=== PATIENT | male | born 1980 | race Caucasian/White ===

== ENCOUNTER 2020-12-01 21:41 | Inpatient (IN) | payer MEDICAID, SELFPAY ==
[~2020-12-01] VITALS: Ht 162.6 cm; Wt 71.9 kg
[~2020-12-01 21:41] MED LIST: AMOX500T3 PO; CLAR500T99 PO; OMEP20TC10 PO
[2020-12-01 21:45] VITALS: BP 89/52
--- NOTE | 2020-12-01 21:45 | NUR ---
TO BED 5 FROM TRIAGE VIA W/C WITH C/O HEMATEMESIS. IS PALE WITH RESPIRATIONS REGULAR AND UNLABORED. APPEARS TIRED. PMH : YAJAIRA NKDA
--- NOTE | 2020-12-01 21:45 | NUR ---
TO BED VIA WHEELCHAIR
[2020-12-01] MEDS ORDERED: PANTOPRAZOLE 40 MG INJ VIAL IVP ONE (22:30)
[2020-12-01] MEDS ORDERED: MORPHINE SULFATE 4 MG/ML SYR IVP ONE (22:30)
[2020-12-01] MEDS ORDERED: ONDANSETRON 4 MG/2 ML VIAL IVP ONE (22:30)
--- NOTE | 2020-12-01 22:33 | NUR ---
LAB AT BEDSIDE.
[2020-12-01 22:56] LABS: BASOPHILS # (AUTO) 0.1 K/uL (0.00-0.22); BASOPHILS % (AUTO) 1.2 % (0.0-2.0); EOSINOPHILS % (AUTO) 0.3 % (0.0-4.0); LYMPHOCYTES # (AUTO) 1.3 K/uL (2.0-11.5); LYMPHOCYTES % (AUTO) 15.8 % (20.5-51.1); MEAN CORPUSCULAR HEMOGLOBIN 24 pg (27-31); MEAN CORPUSCULAR HGB CONC 32 g/dL (33-37); MEAN CORPUSCULAR VOLUME 76.7 fL (80-94); MONOCYTES # (AUTO) 0.5 K/uL (0.8-1.0); MONOCYTES % (AUTO) 5.5 % (1.7-9.3); NEUTROPHILS # (AUTO) 6.4 K/uL (1.8-7.7); NEUTROPHILS % (AUTO) 77.2 % (42.2-75.2); PLATELET COUNT (AUTO) 160 K/uL (140-450); RED BLOOD CELL COUNT(AUTO) 2.31 MIL/uL (4.20-6.10); RED CELL DISTRIBUTION WIDTH 18.5 % (11.6-13.7); WHITE BLOOD COUNT (AUTO) 8.3 K/uL (4.8-10.8)
--- NOTE | 2020-12-01 23:00 | NUR ---
C/O PAIN RATED 8/10. MEDICATED ORDERED
[2020-12-01 23:09] LABS: HEMOGLOBIN 5.6 g/dL (12.0-18.0)
[2020-12-01 23:10] LABS: HEMATOCRIT 17.7 % (36-52)
[2020-12-01 23:19] LABS: ANION GAP 18.9 (8-16); ASPARTATE AMINOTRANSFERASE 4 U/L (15-37); CARBON DIOXIDE 18.5 mmol/L (21-32); CHLORIDE 102 mmol/L (98-107); CREATININE 0.9 mg/dL (0.6-1.3); GFR ARICAN-AMERICAN 120 mL/min (>90); LIPASE 91 U/L (73-393); POTASSIUM 4.4 mmol/L (3.5-5.1); SODIUM SERUM 135 mmol/L (136-145); TOTAL BILIRUBIN 0.7 mg/dL (0.0-1.0); UREA NITROGEN, BLOOD 27 mg/dL (7-18)
[2020-12-01 23:21] LABS: GLUCOSE 434 mg/dL (74-106)
[2020-12-01] MEDS: PANTOPRAZOLE 80 MG in NACL 0.9% 100 ML IVP SCH (23:23)
[2020-12-01 23:41] LABS: APPEARANCE,URINE CLEAR (CLEAR); BILIRUBIN,URINE NEGATIVE (NEGATIVE); BLOOD, URINE NEGATIVE (NEGATIVE); COLOR,URINE YELLOW (YELLOW); LEUKOCYTE ESTERASE ,URINE NEGATIVE (NEGATIVE); NITRITE, URINE NEGATIVE (NEGATIVE); PH,URINE 5.5 (5.0-9.0); UGLUCOSE 3+ (NEGATIVE)
[2020-12-02] VITALS (7 sets, daily range): BP systolic 160–186; BP diastolic 62–130
[2020-12-02 00:02] LABS: BARBITURATE, URINE NEGATIVE ng/ml (NEG <=200); BENZODIAZEPINE, URINE NEGATIVE ng/mL (NEG <=200); CANNABINOID, URINE NEGATIVE ng/mL (NEG <=50); COCAINE, URINE NEGATIVE ng/mL (NEG <=300); PHENCYCLIDINE SCREEN,URINE POSITIVE ng/mL (NEG <=25)
[2020-12-02 00:03] LABS: OPIATE, URINE POSITIVE ng/mL (NEG <=2000)
[2020-12-02] MEDS ORDERED: cefTRIAXone 1,000 MG VIAL ONE (00:31)
[2020-12-02] MEDS ORDERED: OCTREOTIDE ACETATE 1000 MCG/5 ML VIAL ONE (01:40)
[2020-12-02] MEDS: OCTREOTIDE ACETATE 1.25 MG in NACL 0.9% 250 ML IV SCH (02:03)
--- NOTE | 2020-12-02 03:00 | NUR ---
AWAKE AND RESTLESS. CONTINUES TO REQUEST PO FLUIDS. PT IS NPO. BLOOD INFUSION CONTINUES
[2020-12-02] MEDS ORDERED: HYDROcodone/APAP 5/325 MG 1 TAB TAB PO PRN (03:20)
--- NOTE | 2020-12-02 03:25 | NUR ---
C/O ABDOMINAL PAIN 05/10. MEDICATED ORDERED
[2020-12-02] MEDS ORDERED: HYDROcodone/APAP 5/325 MG 1 TAB TAB ONE ×2 (03:26→20:30)
--- NOTE | 2020-12-02 04:00 | NUR ---
RESTING MORE COMFORTABLY/. PAIN NOW 0/10
--- NOTE | 2020-12-02 06:00 | NUR ---
AWAKE, ASSISTED ONTO BEDPAN. HAD MODERATE LIQUID STOOL. CLEANED, REPOSITIONED
[2020-12-02] MEDS ORDERED: POTASSIUM CHLORIDE 10 MEQ TABER PO PRN (07:45)
[2020-12-02] MEDS ORDERED: DOCUSATE SODIUM 100 MG GELCAP PO PRN (07:45)
[2020-12-02] MEDS ORDERED: HYDROcodone/APAP 7.5/325 MG 1 TAB PO PRN (07:45)
[2020-12-02] MEDS ORDERED: guaiFENesin DM 200/20 MG-10 ML 10 ML UDC PO PRN (07:45)
[2020-12-02] MEDS ORDERED: DEXT 5% /NACL 0.9% 1,000 ML IV SCH (07:45)
[2020-12-02] MEDS ORDERED: ONDANSETRON 4 MG/2 ML VIAL IM/IVP PRN (07:45)
[2020-12-02] MEDS ORDERED: DEXTROSE 50% 50 ML SYR IVP PRN (07:50)
--- NOTE | 2020-12-02 08:15 | NUR ---
2ND UNIT OF BLOOD STARTED AT THIS TIME
[2020-12-02 08:27] LABS: CHOL/HDL RATIO 2.5 (1-4.5); FREE T4 (FREE THYROXINE) 1.59 ng/dL (0.76-1.46); MAGNESIUM 1.4 mg/dL (1.8-2.4); PHOSPHORUS 3.8 mg/dL (2.5-4.9); THYROID STIMULATING HORMONE 0.52 uIU/mL (0.34-3.74)
[2020-12-02] MEDS: PANTOPRAZOLE 40 MG TABEC PO SCH (09:06)
--- NOTE | 2020-12-02 09:06 | NUR ---
Patient appears to be resting comfortably in bed. Vital Signs within normal limits. Respirations even and unlabored.
--- NOTE | 2020-12-02 09:49 | NUR ---
3RD UNIT OF BLOOD TRANSFUSING AT THIS TIME
[2020-12-02] MEDS: PANTOPRAZOLE 80 MG in NACL 0.9% 100 ML IVP SCH ×2 (10:00→15:30)
[2020-12-02] MEDS: ACETAMINOPHEN 325 MG TAB PO PRN (10:54)
[2020-12-02] MEDS: BLOOD GLUCOSE MONITORING 1 DEV DEV FS SCH ×3 (11:21→20:51)
[2020-12-02] MEDS: INSULIN LISPRO SLIDING SCALE 100 UNITS/ML VIAL SUBQ PRN ×3 (11:24→20:49)
--- NOTE | 2020-12-02 11:30 | NUR ---
Patient appears to be resting comfortably in bed. Vital Signs within normal limits. Respirations even and unlabored.
--- NOTE | 2020-12-02 12:57 | NUR ---
SOCIAL WORK NOTE: Patient's Orientation Unable To Assess Information Provided By PAULA LIMON - Comments SW WAS UNABLE TO MEET PATIENT AT BEDSIDE. SW COMPLETED ASSESSMENT WITH PATIENT'S . Manager Merchandising, Realtionship and Phone Number PAULA KNOX [phone] Healthcare Power of Hair Preparer No Does Patient Have a POLST No Identifying Problems No Social Work Triggers Is A Social Work Consult Needed No Mandate Report Filed No Explanation Of Identifying Problems PATIENT IS A 40-YEAR-OLD MALE ADMITTED FOR GI BLEED. PATIENT HAS PMHX OF DM, DVT, PE, AND POLYSUBSTANCE ABUSE. 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 ALSO STATED THAT PATIENT USED METHAMPHETAMINES ONCE IN PREVIOUS WEEK BUT DOES NOT USE IT OFTEN. SW WILL MEET WITH PATIENT AND PROVIDE SUBSTANCE ABUSE RESOURCES. Admitted From Home Pre-Admission Level Of Functioning Status Independent/Ambulatory Prior Resources/Services Used In Last 12 Months No Prior Resources Used Prior DME No Prior DME Used Dialysis Comments N/A Living Situation Lives With Family House Patient Had Caregiver No Home Support No Caregiver Issues Financial Issues No Known Financial Issue Referral To The Financial Counselor Needed No Factors/Needs No D/C Needs Identified Pt/Rep Participated In Discharge Plan Yes Patient/Family Agress With Discharge Plan Yes Discharge Plan Comments TENTATIVE DISCHARGE PLAN IS FOR PATIENT TO RETURN HOME. DC Plan Status Initiated
--- NOTE | 2020-12-02 14:14 | NUR ---
OR TEAM AT BEDSIDE TO TRANSFER PATIENT TO SURGERY, DR PAUL AT BEDSIDE FOR CONSULTATION
[2020-12-02] MEDS ORDERED: fentaNYL citrate 0.05 MG/ML VIAL ONE (14:39)
[2020-12-02] MEDS ORDERED: diphenhydrAMINE 50 MG/ML VIAL ONE (14:39)
[2020-12-02] MEDS ORDERED: MIDAZOLAM 2 MG/2 ML VIAL ONE (14:39)
[2020-12-02] MEDS ORDERED: METOCLOPRAMIDE 10 MG/2 ML INJ VIAL ONE (15:47)
--- NOTE | 2020-12-02 15:50 | NUR ---
PATIENT RECEIVED IN ICU, BROUGHT IN BY OR NURSE. 2 L NC, NO SIGNS OF ACUTE DISTRESS NOTED. LAC 20G, R AC 20 G INFUSING D5NS @ 30 ML/HR. DIAPER ON WITH DARK TARRY STOOL NOTED. MRSA SAMPLE COLLECTED AND SENT TO LABORATORY. PATIENT TRANSFERRED TO ICU BED. PROJECTOR OPERATOR PLACED. BED IN LOW POSITION, HOB 30 DEGREES. SAFETY MEASURES IN PLACE.
[2020-12-02] MEDS ORDERED: MIDAZOLAM 2 MG/2 ML VIAL IVP ONE (16:15)
[2020-12-02] MEDS ORDERED: METOCLOPRAMIDE 10 MG/2 ML INJ VIAL IVP ONE (16:15)
[2020-12-02] MEDS ORDERED: fentaNYL citrate 0.05 MG/ML VIAL IVP ONE (16:15)
[2020-12-02] MEDS: LACTULOSE 20 GM/30 ML UDC PO SCH (17:00)
[2020-12-02] MEDS: METOCLOPRAMIDE 10 MG/2 ML INJ VIAL IVP SCH (17:38)
[2020-12-02] MEDS: FERROUS SULFATE 325 MG TABEC PO SCH (17:39)
[2020-12-02] MEDS: DEXT 5% /NACL 0.9% 1,000 ML IV SCH (17:41)
--- NOTE | 2020-12-02 17:42 | NUR ---
ADMINISTERED SCHEDULED MEDS PER MD ORDER. MED EDUCATION PROVIDED, PATIENT VERBALIZES UNDERSTANDING. PATIENT TOLERATED WELL WITH SIPS OF WATER. WELDING MACHINE OPERATOR ULTRASONIC IN PLACE, SAFETY MEASURES IN PLACE.
[2020-12-02] MEDS: hydrALAZINE 20 MG/ML VIAL IVP PRN (17:55)
--- NOTE | 2020-12-02 17:55 | NUR ---
HYDRALAZINE ADMINISTERED PER MD ORDER FOR BP 198/85. MED EDUCATION PROVIDED, REINFORCEMENT NEEDED.
--- NOTE | 2020-12-02 19:20 | NUR ---
PATIENT ENDORSED TO TUBING MACHINE OPERATOR NURSE FOR CONTINUITY OF CARE. PATIENT STABLE AT THIS TIME.
--- NOTE | 2020-12-02 19:30 | NUR ---
REPORT GIVEN BY AM SHIFT. PT IS SLEEPY, NO S/S RESP DISTRESS AT THIS TIME. PT ON O2 AT 2LPM. ST NOTED ON MONITOR BP IS HIGH 195/83 ,PER REPORT THAT DR. KERR AWARE BP MED ORDERED. PT IS NEW ADMIT TO ICU FROM OR. THEY DO GI EGD WITH BANDING OF VARICES (ESOPHAGUS). SKIN COLD TO TOUCH. PT IS NPO AT THIS TIME. IV D5IN 1/2 NS AT 130 CC/HR. IV LINE INTACT WELL. SKIN INTACT. PT IS CONTINENT BOWEL AND BLADDER. GENTLE CARE GIVEN. KEPT CLEAN AND DRY. Addendum: 12/02/20 at 2323 by Alexia Trammell RN IV FLUID D5 IN NS
[2020-12-02] MEDS: HYDROcodone/APAP 5/325 MG 1 TAB TAB PO PRN (20:50)
[2020-12-02] MEDS: SENNA 8.6 MG TAB PO SCH (20:52)
--- NOTE | 2020-12-02 21:00 | NUR ---
THE LIBRARY MANAGER CALL AND ASKING ABOUT THE BIOPSY SPECIMEN FROM OR BECAUSE NOT IN THE LAB. REFER TO CHARGE NURSE AND SENIOR INSTRUMENTATION ENGINEER. PT WAS COME TO ICU NO SPECIMEN COLLECTED AT ICU.
--- NOTE | 2020-12-02 21:53 | NUR ---
PAULA LIMON CALL AND UP DATE PT CONDITION TO HER.
--- NOTE | 2020-12-02 22:05 | NUR ---
PT WAS C/O PAIN BEGINNING OF SHIFT AND PLACED CALL TO AND HE AWARE. NORCO GIVEN PRN. ALSO AWARE BP STILL HIGH PER MD TO MONITOR AT THIS TIME. SBP WAS 195 /83 AFTER NORCO DOWN TO 169/70. NIGHT MEDS GIVEN. BLOOD SUGAR 273 AND 6 UNITS INSULIN GIVEN ORDER. PT SAID HE NEED TO CHARGE THE PHONE AND NOTED NO FORGING DIE SINKER AT BED SIDE.PER PT IS WAS IN ER. CALL ER AND INFORM THE SITUATION AND ALREADY DOUBLE CHECK THE PLASTIC BAG AND SMALL LUNG BAG, NO FORGING DIE SINKER NOTED. PER PT IS [place] COLOR AND THE HEAD WAS WHITE. I PHONE FORGING DIE SINKER.ER AWARE AND ABLE TO FIND THE CORD IN THE PREVIOUS PT BED BUT NO HEAD OF FORGING DIE SINKER. SECURITY HANDED TO ICU STAFF AND GIVE TO PT THE CORD. NO HEAD OF FORGING DIE SINKER FOUND YET. LENDING BLACK CLOTHING MAN TO PT AT THIS TIME.
[2020-12-03] VITALS (11 sets, daily range): BP systolic 105–187; BP diastolic 58–87
[2020-12-03] MEDS: OCTREOTIDE ACETATE 1.25 MG in NACL 0.9% 250 ML IV SCH (00:05)
[2020-12-03] MEDS: PROPRANOLOL 20 MG TAB PO SCH (01:30)
[2020-12-03] MEDS: CLONIDINE HYDROCHLORIDE 0.1 MG TAB PO SCH (01:30)
[2020-12-03] MEDS: DEXT 5% /NACL 0.9% 1,000 ML IV SCH ×2 (01:43→08:15)
[2020-12-03] MEDS: ZOLPIDEM 5 MG TAB PO PRN ×2 (01:44→22:35)
--- NOTE | 2020-12-03 01:44 | NUR ---
RENATE GIVEN PT C/O UNABLE TO SLEEP. EXTRA BLANKET GIVEN TO KEEP PT DRY. SISTER CALL AND UP DATE PT CONDITION.
[2020-12-03] MEDS: HYDROcodone/APAP 5/325 MG 1 TAB TAB PO PRN ×2 (05:34→11:38)
--- NOTE | 2020-12-03 05:44 | NUR ---
PT C/O PAIN 6/10 AND PRN NORCO FOR PAIN GIVEN. CONT TO MONITOR.
[2020-12-03 06:12] LABS: ANION GAP 15.3 (8-16); CARBON DIOXIDE 23.3 mmol/L (21-32); CREATININE 0.6 mg/dL (0.6-1.3); POTASSIUM 3.6 mmol/L (3.5-5.1)
[2020-12-03] MEDS: BLOOD GLUCOSE MONITORING 1 DEV DEV FS SCH ×4 (06:36→22:34)
[2020-12-03] MEDS: INSULIN LISPRO SLIDING SCALE 100 UNITS/ML VIAL SUBQ PRN ×4 (06:36→22:42)
[2020-12-03 06:40] LABS: BASOPHILS # (AUTO) 0.1 K/uL (0.00-0.22); EOSINOPHILS # (AUTO) 0.1 K/uL (0-0.4); EOSINOPHILS % (AUTO) 1.1 % (0.0-4.0); HEMATOCRIT 29.1 % (36-52); HEMOGLOBIN 9.9 g/dL (12.0-18.0); LYMPHOCYTES # (AUTO) 1.1 K/uL (2.0-11.5); LYMPHOCYTES % (AUTO) 19.5 % (20.5-51.1); MEAN CORPUSCULAR HEMOGLOBIN 28 pg (27-31); MEAN CORPUSCULAR HGB CONC 34 g/dL (33-37); MEAN CORPUSCULAR VOLUME 82.7 fL (80-94); MONOCYTES # (AUTO) 0.4 K/uL (0.8-1.0); MONOCYTES % (AUTO) 6.5 % (1.7-9.3); NEUTROPHILS # (AUTO) 4.1 K/uL (1.8-7.7); NEUTROPHILS % (AUTO) 71.9 % (42.2-75.2); PLATELET COUNT (AUTO) 114 K/uL (140-450); RED BLOOD CELL COUNT(AUTO) 3.52 MIL/uL (4.20-6.10); RED CELL DISTRIBUTION WIDTH 18.9 % (11.6-13.7); WHITE BLOOD COUNT (AUTO) 5.7 K/uL (4.8-10.8)
--- NOTE | 2020-12-03 06:49 | NUR ---
ER FOUND THE HEAD OF I PHONE PHARMACOLOGY TEACHER AND GIVEN TO PT.
--- NOTE | 2020-12-03 07:23 | NUR ---
REPORT GIVEN TO AM SHIFT. PT IS SLEEPING AT THIS TIME.
--- NOTE | 2020-12-03 07:30 | NUR ---
RECEIVED PATIENT ON SANDOSTATIN IV DRIP AND IVF. AWAKE A/O X4, DROWSY AT THIS TIME. DENIES PAIN AT THIS TIME. VITALS STABLE, SBP ON THE HIGHER SIDE. CHECKED EMAR AND PATIENT HAS ROUTINE METOPROLOL DUE AT 0900 AND HYDRALAZINE PRN. SLEEPING AT THIS TIME.
[2020-12-03 08:08] LABS: T4 (THYROXINE) 8.9 ug/dL (4.5-12.0)
[2020-12-03] MEDS: FERROUS SULFATE 325 MG TABEC PO SCH ×3 (08:11→17:53)
[2020-12-03] MEDS: PANTOPRAZOLE 40 MG TABEC PO SCH (08:11)
[2020-12-03] MEDS: LACTULOSE 20 GM/30 ML UDC PO SCH ×3 (08:12→17:53)
[2020-12-03] MEDS: SENNA 8.6 MG TAB PO SCH ×2 (08:12→22:34)
--- NOTE | 2020-12-03 08:18 | NUR ---
PATIENT HAS BEEN SCREENED AND CATEGORIZED MODERATE NUTRITION RISK. PATIENT WILL BE SEEN WITHIN 3-5 DAYS OF ADMISSION. 12/04/20 12/06/[address]
[2020-12-03] MEDS: ACETAMINOPHEN 325 MG TAB PO PRN (08:22)
[2020-12-03] MEDS: METOCLOPRAMIDE 10 MG/2 ML INJ VIAL IVP SCH ×3 (08:23→17:58)
[2020-12-03] MEDS: MAGNESIUM OXIDE 400 MG TAB PO SCH (08:23)
[2020-12-03] MEDS ORDERED: METOPROLOL 25 MG TAB PO SCH (09:00)
--- NOTE | 2020-12-03 09:00 | NUR ---
CALLED AND UPDATE GIVEN TO HER. NOTIFIED HER THERE IS ORDER FOR TRANSFER TO FLOOR ONCE BED IS AVAILABLE. PATIENT GIVEN ROUTINE AM MEDS INCLUDING METOPROLOL. BP 179/77. WILL CONTINUE TO MONITOR. TYLENOL GIVEN FOR PAIN. NORCO NOT DUE AT THIS TIME. DR. KERR MADE ROUNDS EARLIER AND HE ORDERED FOR PATIENT TRANSFER. PATIENT ATE 100% BREAKFAST WITHOUT ANY C/O NAUSEA OR VOMITING. BM X1. DARK COLORED STOOL WITHOUT ANY BLEEDING NOTED. WILL CONTINUE TO MONITOR AND ATTEND TO PATIENT NEEDS.
[2020-12-03] MEDS ORDERED: PROPRANOLOL 20 MG TAB PO SCH (13:26)
[2020-12-03] MEDS: hydrALAZINE 20 MG/ML VIAL IVP PRN ×2 (13:38→15:49)
--- NOTE | 2020-12-03 15:30 | NUR ---
RECEIVED PATIENT REPORT BY MARGA VASQUEZ VIA TELEPHONE. PATIENT WILL BE BROUGHT TO THE UNIT IN 10 MINS.
--- NOTE | 2020-12-03 15:30 | NUR ---
PATIENT BROUGHT TO THE UNIT FROM ICU. PATIENT IS AO X4, ABLE TO MAKE NEEDS KNOWN. RESPIRATIONS EVEN AND UNLABORED. ON ROOM AIR. NO S/S RESP DISTRESS AT THIS TIME. ON TELE MONITOR. SKIN IS INTACT, WARM, AND DRY. IV SITE ON LAC AND RAC 20 G. INTACT AND PATENT. D5IN 1/2 NS AT 20 CC/HR. PT IS CONTINENT BOWEL AND BLADDER. GENTLE CARE GIVEN. KEPT CLEAN AND DRY. PLAN OF CARE DISCUSSED. SAFETY PRECAUTIONS IN PLACE. CALL LIGHT WITHIN REACH. WILL CONTINUE TO MONITOR.
--- NOTE | 2020-12-03 15:40 | NUR ---
PATIENT TRANSFERRED TO [facility]. REPORT GIVEN TO MARGA CHRISTY. VITALS STABLE AT THIS TIME. PATIENT DENIED ANY PAIN SOB OR DISTRESS. ALL BELONGINGS ACCOUNTED FOR AND BROUGHT WITH PATIENT TO ROOM. PATIENT STATED HE NOTIFIED HIS OF TRANSFER. Addendum: 12/03/20 at 1617 by Tejinder Snider RN RN TIME IS 1542
--- NOTE | 2020-12-03 18:00 | NUR ---
ALL SCHEDULED MEDS GIVEN. PT IS STABLE. NO DISTRESS NOTED. WILL CONTINUE TO MONITOR.
--- NOTE | 2020-12-03 19:29 | NUR ---
ENDORSED TO CAR MECHANIC NURSE FOR CONTINUITY OF CARE. PT IS STABLE.
--- NOTE | 2020-12-03 19:40 | NUR ---
C/O SLEEPLESSNESS - REQUESTING SLEEPING PILL - WILL MEDICATE ORDERED . WILL CONT. TO MONITOR .
--- NOTE | 2020-12-03 21:00 | NUR ---
THE DUE INDERAL AND CATAPRES NOT GIVEN DUE TO LOWDIASTOLIC BP - WILL RE CHECK THE BP . WILL CONT. TO MONITOR .
[2020-12-04] VITALS: BP 147/79
--- NOTE | 2020-12-04 | NUR ---
MADE ROUNDS , NO S/X OF ACUTE DISTRESS NOTED .
[2020-12-04] MEDS: CLONIDINE HYDROCHLORIDE 0.1 MG TAB PO SCH ×2 (01:30→05:00)
[2020-12-04] MEDS: PROPRANOLOL 20 MG TAB PO SCH ×2 (01:30→05:00)
[2020-12-04 04:00] VITALS: BP 122/68
--- NOTE | 2020-12-04 04:50 | NUR ---
INFORM PHARMACIST - I GAVE INDERAL AND CATAPRES P.O AT 0130 INSTEAD OF 2100 - PER PHARMACIST SKIP THE DUE INDERAL AND CATAPRES AT 0500 - HE SAID IT'S TOO CLOSE THE FREQ.
--- NOTE | 2020-12-04 06:00 | NUR ---
NO COMPLAIN MADE .
[2020-12-04] MEDS: BLOOD GLUCOSE MONITORING 1 DEV DEV FS SCH ×2 (06:22→12:22)
[2020-12-04] MEDS: INSULIN LISPRO SLIDING SCALE 100 UNITS/ML VIAL SUBQ PRN (06:25)
[2020-12-04 07:11] LABS: BASOPHILS # (AUTO) 0.1 K/uL (0.00-0.22); BASOPHILS % (AUTO) 0.6 % (0.0-2.0); EOSINOPHILS # (AUTO) 0.2 K/uL (0-0.4); EOSINOPHILS % (AUTO) 1.6 % (0.0-4.0); HEMATOCRIT 30.3 % (36-52); HEMOGLOBIN 10.1 g/dL (12.0-18.0); LYMPHOCYTES # (AUTO) 1.5 K/uL (2.0-11.5); LYMPHOCYTES % (AUTO) 15.8 % (20.5-51.1); MEAN CORPUSCULAR HEMOGLOBIN 28 pg (27-31); MEAN CORPUSCULAR HGB CONC 34 g/dL (33-37); MEAN CORPUSCULAR VOLUME 82.2 fL (80-94); MONOCYTES # (AUTO) 0.7 K/uL (0.8-1.0); MONOCYTES % (AUTO) 7.6 % (1.7-9.3); NEUTROPHILS # (AUTO) 7.2 K/uL (1.8-7.7); NEUTROPHILS % (AUTO) 74.4 % (42.2-75.2); PLATELET COUNT (AUTO) 158 K/uL (140-450); RED BLOOD CELL COUNT(AUTO) 3.68 MIL/uL (4.20-6.10); RED CELL DISTRIBUTION WIDTH 19.7 % (11.6-13.7); WHITE BLOOD COUNT (AUTO) 9.6 K/uL (4.8-10.8)
--- NOTE | 2020-12-04 07:18 | NUR ---
D/C IVF ORDERED BY DR. SCHMID .
[2020-12-04 07:27] LABS: ANION GAP 10.7 (8-16); CARBON DIOXIDE 24.1 mmol/L (21-32); CREATININE 0.6 mg/dL (0.6-1.3); POTASSIUM 3.8 mmol/L (3.5-5.1)
--- NOTE | 2020-12-04 07:40 | NUR ---
ENDORSED -PT - STABLE .
--- NOTE | 2020-12-04 07:45 | NUR ---
RECEIVED BEDSIDE ENDORSEMENT FROM NIGHTSKYFT NURSE FOR CONTINUITY OF CARE.
[2020-12-04 08:00] VITALS: BP 91/37
[2020-12-04] MEDS: PANTOPRAZOLE 40 MG TABEC PO SCH (08:47)
[2020-12-04] MEDS: MAGNESIUM OXIDE 400 MG TAB PO SCH (08:47)
[2020-12-04] MEDS: SENNA 8.6 MG TAB PO SCH (08:48)
[2020-12-04] MEDS: FERROUS SULFATE 325 MG TABEC PO SCH ×2 (08:48→12:14)
[2020-12-04] MEDS: METOCLOPRAMIDE 10 MG/2 ML INJ VIAL IVP SCH (08:49)
[2020-12-04] MEDS: LACTULOSE 20 GM/30 ML UDC PO SCH (08:49)
--- NOTE | 2020-12-04 09:04 | NUR ---
ADMINISTERED PRESCRIBED MEDS PER MD ORDER. PATIENT TOLERATED WELL. PATIENT RESTING, LETHARGIC, AOx4 ABLE TO MAKE NEEDS KNOWN. MEDICATION EDUCATION PROVIDED. PATIENT VERBALIZED UNDERSTANDING. BREAKFAST TRAY AT BEDSIDE. SAFETY MEASURES IN PLACE. WILL CONTINUE TO MONITOR.
--- NOTE | 2020-12-04 10:30 | NUR ---
AM BP 91/37, REASSESSED BP IS NOW 137/65. PATIENT IN BED RESTING. QUESTIONED IF BEING DISCHARGED TODAY. ADVISED WILL WAIT FOR MD TO RELEASE AND WILL KEEP HIM INFORMED. PATIENT VERBALIZED UNDERSTANDING. SAFETY MEASURES IN PLACE. WILL CONTINUE TO MONITOR.
[2020-12-04] MEDS ORDERED: PANT40EC56 PO (11:47)
[2020-12-04] MEDS ORDERED: FER325 PO (11:47)
[2020-12-04] MEDS ORDERED: PROP20TA29 PO (11:47)
[2020-12-04] MEDS ORDERED: SENN-74 PO (11:47)
[2020-12-04] MEDS ORDERED: INSU200I SQ (11:54)
[2020-12-04] MEDS ORDERED: INSU100S22 SUBQ (11:54)
[2020-12-04 11:58] VITALS: BP 91/37
[2020-12-04 12:00] VITALS: BP 132/75
--- NOTE | 2020-12-04 12:53 | NUR ---
PATIENT IS DISCHARGED. DISCHARGE PAPERWORK PRINTED, REVIEWED AND SIGNED BY PATIENT. PATIENT VERBALIZED UNDERSTANDING. PATIENT AWARE OF NEW MEDICATION ORDERS AND GUIDE LOCATION. PATIENT DISCHARGE BLOOD SUGAR 412, PER MD PRN INSULIN GIVEN 8 UNITS. PATIENT CHANGED INTO CLOTHES. IV LINE, ID BAND, AND TELE MONITOR REMOVED. PATIENT GATHERED ALL BELONGINGS AND WAS ESCORTED TO FRONT OF HOSPITAL WHERE HIS WAS WAITING FOR HIM. PATIENT IS STABLE.
== END 2020-12-04 12:40 | disposition home or self-care (01) | DRG 242 ==
LOC: MED 21:41 → MTU 23:59 → MIC 12-02 13:00 → MTU 12-03 15:30
PROVIDERS: ADMIT Family Medicine; ATTEND Family Medicine
PROC: 30233N1 Transfusion of Nonautologous Red Blood Cells into Peripheral Vein, Percutaneous Approach (ICD-10-PCS; 2020-12-02)
PROC: 06L38CZ Occlusion of Esophageal Vein with Extraluminal Device, Via Natural or Artificial Opening Endoscopic (ICD-10-PCS; principal; 2020-12-02 15:40)
DX: I85.01 Esophageal varices with bleeding (principal); E44.0 Moderate protein-calorie malnutrition; G92 Toxic encephalopathy; E10.65 Type 1 diabetes mellitus with hyperglycemia; E87.5 Hyperkalemia; E87.1 Hypo-osmolality and hyponatremia; E83.42 Hypomagnesemia; E86.0 Dehydration; K52.9 Noninfective gastroenteritis and colitis, unspecified; D50.9 Iron deficiency anemia, unspecified; I10 Essential (primary) hypertension; E78.1 Pure hyperglyceridemia; Z20.822 Contact with and (suspected) exposure to COVID-19; F17.210 Nicotine dependence, cigarettes, uncomplicated; E78.5 Hyperlipidemia, unspecified; F15.10 Other stimulant abuse, uncomplicated; F11.10 Opioid abuse, uncomplicated; Z86.718 Personal history of other venous thrombosis and embolism; Z86.711 Personal history of pulmonary embolism
CPT/HCPCS: 36415; 36600; 76700; 80048; 80053; 80305; 81003; 82150; 82803; 82948; 83036; 83690; 83735; 83880; 84100; 84436; 84439; 84443; 84479; 84484; 85025; 85610; 85730; 86886; 86900; 86901; 86920; 87081; 96374; 96375; 99291; C9113; G0482; J0360; J0696; J1200; J2250; J2270; J2354; J2405; J2765; J3010; J7030; J7042; J7060; P9016

== ENCOUNTER 2021-11-06 18:10 | Emergency (ER) | payer MEDICAID, SELFPAY ==
[~2021-11-06] VITALS: Ht 172.7 cm; Wt 83.9 kg
[2021-11-06 18:10] VITALS: BP 148/71
[~2021-11-06 18:10] MED LIST changes: -AMOX500T3 PO; -CLAR500T99 PO; +FER325 PO; +INSU100S22 SUBQ; +INSU200I SQ; -OMEP20TC10 PO; +PANT40EC56 PO; +PROP20TA29 PO; +SENN-74 PO
--- NOTE | 2021-11-06 18:10 | NUR ---
41 y/o Male BIBA for fentanyl overdose. 5mg total of narcan given pre-hospital along with assisting resp status with a BMV. Pt arrived AOX4, able to make needs known. Resp even and unlabored. VSS. Steady on his feet. Abd soft and non-tender. + BS x 4. PmHx: DM Home meds: Denies Allergies: Denies
--- NOTE | 2021-11-06 18:10 | NUR ---
1805 BIBA TO ER BED 4
--- NOTE | 2021-11-06 18:16 | NUR ---
LISA Diana made aware of BG [id number]
--- NOTE | 2021-11-06 18:38 | NUR ---
Blood specimen collected and taken to lab
[2021-11-06] MEDS ORDERED: NALO4SPR NS (18:57)
--- NOTE | 2021-11-06 19:30 | NUR ---
Pt report given to RENETTA GRESHAM. Transfer of care at this time.
--- NOTE | 2021-11-06 20:12 | NUR ---
PT LAYING IN BED W HOB ELEVATED. BED LOCKED INLOWEST POSITION W X1 SIDERAIL UP. PT MILDLY TACH BUT OTHERWISE VSS. PT DENIES ANY PAIN, CP, SOB, LIGHTHEADED, N/V OR OTHER SYMPTOMS. PT REPORTS HE FEELS GOOD AND READY TO GO HOME. PT OX4, [facility]. ERMD MADE AWARE OF PT STATUS. PT CONNECTED TO MONITOR. BREATHING EVEN AND UNLABORED. NAD NOTED, WILL CONTINNUE TO MONITOR.
--- NOTE | 2021-11-06 20:16 | NUR ---
PT AMBULATES TO BATHROOM WITHOUT ASSISTANCE
[2021-11-06 20:21] VITALS: BP 123/58
--- NOTE | 2021-11-06 20:21 | NUR ---
Patient discharged with v/s stable. Written and verbal after care instructions given and explained. Patient alert, oriented and verbalized understanding of instructions. Ambulatory with steady gait. All questions addressed prior to discharge. ID band removed. Patient advised to follow up with PMD. Rx of NARCAN given. Patient educated on indication of medication including possible reaction and side effects. Opportunity to ask questions provided and answered.
--- NOTE | 2021-11-06 22:05 | NUR ---
CALLED PT TO [phone] TO VERIFY IV REMOVAL. PER PT IV WAS REMOVED BY A NURSE AND DID NOT GO HOME W ONE, DOES NOT REMEBER NURSES NAME. PT ALSO FORGOT HIS MUSCLE SHIRT REPORTS HE WILL NOT BE RETURNING FOR IT AND TO THROW IT AWAY.
== END 2021-11-06 20:21 | disposition home or self-care (01) ==
LOC: MED 18:10
DX: T40.411A Poisoning by fentanyl or fentanyl analogs, accidental (unintentional), initial encounter (principal); E11.9 Type 2 diabetes mellitus without complications; Z79.4 Long term (current) use of insulin; Z79.899 Other long term (current) drug therapy; Y92.89 Other specified places as the place of occurrence of the external cause
CPT/HCPCS: 99283